=== PATIENT | female | born 1980 | race American Indian/Alaskan Native ===

== ENCOUNTER → 2025-02-09 | Outpatient (CLI) | payer OTHER, SELFPAY ==
--- NOTE | 2025-02-09 13:30 | XR_ITS ---
Examination: Breast ultrasound complete, bilateral Date and time of exam: February 09, 2025 1359 hours INDICATIONS: Mammogram July 15, 2024 focal asymmetry outer left breast, left breast sonogram July 15, 2024 3:00 nodule 15 x 10 mm, history left breast biopsy March 2024 Technique: Real-time grayscale ultrasonographic imaging bilateral breasts, including all 4 quadrants as well as nipple retroareolar and axillary regions. Findings: Sonographic images right breast Benign cyst No solid nodules Sonographic images left breast 1:00 oval circumscribed nodule 6 x 5 mm 4:00 cyst 3 x 3 mm 3:00 circumscribed nodule 5 x 4 mm IMPRESSION: BI-RADS Category 2: Benign findings
--- NOTE | 2025-02-09 14:30 | XR_ITS ---
Examination: Diagnostic digital mammography, bilateral Computer aided detection 3-D breast Tomosynthesis, bilateral Date and time of exam: February 09, 2025 1351 hours INDICATIONS: Mammogram December 09, 2023 architectural distortion 3:00 position left breast Technique: Nonmagnified MLO, CC views of the breasts to been obtained, reconstructed from 3-D Tomosynthesis images. R2 computer aided detection program utilized for evaluation of suspicious masses and/or abnormal calcifications. 3-D Tomosynthesis images obtained. Findings: The breasts are heterogeneously dense, which may obscure small masses Breast biopsy marker upper outer left breast No suspicious masses depicted Impression: BI-RADS Category 2: Benign findings Return to yearly follow-up mammography.
== END | disposition home or self-care (01) ==
PROVIDERS: PCP Surgery; Referring Provider Surgery; Visit Provider Surgery
DX: R92.323 Mammographic fibroglandular density, bilateral breasts (principal); N60.01 Solitary cyst of right breast; N60.02 Solitary cyst of left breast; N63.25 Unspecified lump in the left breast, overlapping quadrants; N63.21 Unspecified lump in the left breast, upper outer quadrant
CPT/HCPCS: 76641; 77062; 77066; G0279

== ENCOUNTER 2025-10-06 12:32 | Emergency (ER) | payer BC, SELFPAY ==
[2025-10-06 12:33] VITALS: BMI 34.0
[2025-10-06 13:08] VITALS: BP 123/80; PULSE 82; RESP 98; TEMP 36.9; O2SAT 100
--- NOTE | 2025-10-06 13:14 | XR_ITS ---
EXAMINATION: PA chest single view CAP TECHNIQUE: Upright PA chest single view Date and time: October 06, 2025, 1320 hours, comparison February 13, 2019 INDICATIONS: Fever diaphoresis night sweats shortness of breath 1 week. FINDINGS: Normal heart size Lungs are clear. Intact osseous structures IMPRESSION: No active disease
--- NOTE | 2025-10-06 13:14 | EKG_ITS ---
[facility] (Formerly [facility]) Test Date: 2025-10-06 Pat Name: CHRISTEN CHAMPION Department: Room: - Gender: Female Director Emergency Department: : 1980 Requested By: Vlad Campos Order Number: [id number] Reading MD: Vlad Campos Measurements Intervals [place] Rate: 72 P: 69 CO: 146 QRS: 46 QRSD: 108 T: 51 QT: 359 QTc: 394 Interpretive Statements SINUS RHYTHM LOW QRS VOLTAGE IN PRECORDIAL LEADS [QRS DEFLECTION < 1.0 mV IN CHEST LEADS] POSSIBLE RIGHT VENTRICULAR CONDUCTION DELAY [RSR (QR) IN V1/V2] No previous ECG available for comparison /store/S0/[id number].pdf
--- NOTE | 2025-10-06 13:15 | PD.EDRME ---
Rapid Medical Screening Exam E Arrival date/time: 10/06/25 12:32 45-year-old female with no known medical history presents to the emergency room with a chief complaint of shortness of breath, bilateral lower extremity swelling, chest pain, x 1 week. Patient states she is in the process of figuring out if she has valley fever I have greeted and performed a focused initial assessment of this patient. A comprehensive ED assessment and evaluation of the patient, analysis of all test results, and completion of the medical decision making process will be conducted by additional ED providers. Chief Complaint: General Adult/Misc Complain Time Seen by Provider: 10/06/25 12:40 Vital signs: Vital Signs Temperature 98.5 F 10/06/25 13:08 Pulse Rate 82 10/06/25 13:08 Respiratory Rate 98 H 10/06/25 13:08 Blood Pressure 123/80 10/06/25 13:08 Pulse Oximetry (%) 100 10/06/25 13:08 Oxygen Delivery Method Room Air 10/06/25 13:08 Vital signs reviewed by provider: Yes Exam: Clear bilateral lung sounds Strong and regular rhythm Clinical Impression: Valley fever/pneumonia
[2025-10-06 14:03] LABS: Basophils # (Auto) 0.1 Thou/mm3 (0.0-0.2); Basophils % (Auto) 1 % (0-2.5); Eosinophils # (Auto) 0.1 Thou/mm3 (0.0-0.5); Eosinophils % (Auto) 2 % (0-10); Hematocrit 36.3 % (36.0-46.0); Hemoglobin 12.1 g/dL (12.0-16.0); Immature Granulocytes Auto 0.02 Thou/mm3 (0.00-0.00); Lymphocytes # (Auto) 1.4 Thou/mm3 (1.0-4.8); Lymphocytes % (Auto) 18 % (10-50); Mean Corpuscular HGB Conc 33.3 g/dl (31.0-37.0); Mean Corpuscular Hemoglobin 28.1 pg (25.0-35.0); Mean Corpuscular Volume 84 fL (80-100); Monocytes # (Auto) 0.6 Thou/mm3 (0.0-0.8); Monocytes % (Auto) 8 % (0-12); Neutrophils # (Auto) 5.4 Thou/mm3 (1.8-7.7); Neutrophils % (Auto) 71 % (37-80); Nucleated Red Blood Cell # 0.00 Thou/mm3 (0.00-0.00); Nucleated Red Blood Cell % 0 /100 WBC (0); Platelet Count 439 Thou/mm3 (140-440); RDW Standard Deviation 41.1 fL (36.4-46.3); Red Blood Count 4.30 Miln/mm3 (4.00-5.20); White Blood Count 7.6 Thou/mm3 (3.6-11.0)
[2025-10-06 14:21] LABS: B-Type Natriuretic Peptide 80 pg/mL (0-100)
[2025-10-06 14:23] LABS: Alanine Aminotransferase 13 U/L (10-49); Albumin, Serum 4.5 gm/dL (3.5-5.0); Albumin/Globulin Ratio 1.2 (1.2-2.2); Alkaline Phosphatase 72 U/L (46-116); Anion Gap 11 (7-16); Aspartate Amino Transferase 16 U/L (0-34); BUN/Creatinine Ratio 9 Ratio (12-20); Bilirubin,Total 0.5 mg/dL (0.3-1.2); Blood Urea Nitrogen 7 mg/dL (9-23); Calcium 9.1 mg/dL (8.3-10.6); Calcium (Corrected) 9.1 mg/dL (8.5-10.1); Carbon Dioxide 24.0 mMol/L (20.0-31.0); Chloride 106 mMol/L (98-107); Creatinine (Component) 0.8 mg/dL (0.6-1.3); Estimated Creatinine Clearance 105.7 mL/min (>60); Globulin 3.8 gm/dL (2.3-3.5); Glucose 86 mg/dL (74-106); Magnesium 2.0 mg/dL (1.6-2.6); Osmolality,Calculated 278 (275-295); Potassium 3.8 mMol/L (3.4-5.1); Sodium 141 mMol/L (136-145); Total Protein 8.3 gm/dL (5.7-8.2); Troponin I < 0.002 ng/mL (0.0-0.045); eGFR > 60 See Note
[2025-10-06 14:23] LABS: Collection Type, Urine Clean Catch; WBC,Urine 0 /hpf (0-5)
[2025-10-06 14:27] LABS: Bilirubin,Urine Negative (Negative); Blood,Urine 2+ (Negative); Clarity,Urine Clear (Clear/Hazy); Color,Urine Colorless (Lt Yel-Yel); Culture Indicated,Urine Not Indicated; Glucose, Urine Negative (Negative); Ketones,Urine Negative (Negative); Leukocyte Esterase,Urine Negative (Negative); Nitrite,Urine Negative (Negative); PH,Urine 6.5 (5.0-7.0); Protein,Urine Negative (Neg - Trace); RBC,Urine 1 /hpf (0-3); Specific Gravity,Urine 1.003 (1.001-1.035); Squamous Epithelial Cell,Urine 1 /hpf (0-5); Urobilinogen,Urine Negative mg/dL (0.0-1.0)
--- NOTE | 2025-10-06 15:16 | PD.EDADULT ---
ED General RME/HPI General Chief complaint: General Adult/Misc Complain Stated complaint: LOOKING FOR RX FOR VALLEY FEVER; NIGHT SWEATS Time Seen by Provider: 10/06/25 12:40 Source: patient Arrival date/time: 10/06/25 12:32 Mode of arrival: ambulatory Limitations: no limitations RME / HPI RME / HPI narrative: 10/06/25 12:32 45-year-old female with no known medical history presents to the emergency room with a chief complaint of shortness of breath, bilateral lower extremity swelling, chest pain, x 1 week. Patient states she is in the process of figuring out if she has valley fever I have greeted and performed a focused initial assessment of this patient. A comprehensive ED assessment and evaluation of the patient, analysis of all test results, and completion of the medical decision making process will be conducted by additional ED providers. Patient states she has followed up with her primary care provider and specialist for numerous testing. Patient states she did do a cocci evaluation approximately 10 days ago that was nonconfirmatory. Patient states that they have ruled out psoriatic arthritis, RA and Lyme disease at this point. Exam: Clear bilateral lung sounds Strong and regular rhythm Impression: Valley fever/pneumonia Related Data Previous Rx's ?Medication ?Instructions ?Recorded dicyclomine 20 mg tablet 20 mg PO TID #30 tabs 02/18/19 hydrocodone 10 mg-acetaminophen 1 tab PO Q6H PRN pain #20 tabs 02/28/19 325 mg tablet (Melissa) Allergies Allergy/AdvReac Type Severity Reaction Status Date / Time No Known Allergies Allergy Verified 10/06/25 12:34 Review of Systems Review of Systems Systems Reviewed: All systems reviewed, normal except as documented Past Medical History Past Medical History NEUROLOGIC: Negative Neurological Disorders or Seizures CARDIAC: Negative Cardiac Disorders or Congestive Heart Failure RESPIRATORY: Negative Chronic Obstructive Pulmonary Disease (COPD) GASTROINTESTINAL: Positive Gastrointestinal Disorders, Gall Bladder Disease (For this procedure) and Obesity GENITOURINARY: Negative Genitourinary Disorders or Renal Disease REPRODUCTIVE: Positive Previous Pregnancies (); Negative Breast Cancer MUSCULOSKELETAL: Negative Musculoskeletal Disorders ENDOCRINE: Negative Endocrine Disorders, Diabetes Mellitus Type 1 or Diabetes Mellitus Type 2 HEMATOLOGIC: Negative Blood Disorders or Clotting Problems OTHER HISTORY: Positive Hospitalization (02/13-02/18/2019 GALLBLADDER [facility]) and Chicken Pox; Negative Autoimmune Disease, Shingles, Blood Transfusions, Anesthesia Reactions, MRSA or Breast Cancer Family History FAMILY HISTORY: Positive Family Cancer (SISTER (CERVICAL CANCER)) and Family Surgery (FATHER (BACK) SISTER(GALLBLADDER)); Negative Family Neurologic Problems, Family Respiratory Disorders or Family Anesthesia Reaction Surgical History SURGICAL: Negative Cardiac Surgery, Endocrine Surgery, Ear Surgery, Abdominal Surgery, Nephrectomy, Joint Replacement or Neurologic Surgery Social History SMOKING STATUS: Never smoker ED Exam Narrative Physical exam: Patient complains of global joint pain and musculoskeletal pain concerns as well as nonspecific chest pain and shortness of breath sensations. General Limitations: Present no limitations General appearance: Present alert and in distress (Patient is in mild to moderate distress due to anxiety related to her multitude of comorbidities.) Head Head exam: Present atraumatic Eye Eye exam: Present normal appearance, PERRL and EOMI ENT ENT exam: Present normal exam, normal oropharynx and mucous membranes moist Neck Neck exam: Present normal inspection, full ROM and trachea midline Chest Chest inspection: Present normal inspection and symmetric chest wall rise Respiratory Respiratory exam: Present normal lung sounds bilaterally Cardiovascular Cardiovascular exam: Present regular rate, normal rhythm and normal heart sounds Abdominal Exam Abdominal exam: Present soft and normal bowel sounds Extremities Exam Extremities exam: Present full ROM and other (Patient is placed 1+ bilateral pitting edema to lower extremities that was relatively unremarkable. This neurovascular intact. Pedal pulses are 5+5+ bilaterally.) Back Exam Back exam: Present normal inspection and full ROM Neurological Exam Neurological exam: Present alert, oriented X3 and CN II-XII intact Psychiatric Psychiatric exam: Present normal affect and normal mood Skin Skin exam: Present warm, dry, intact and normal color Course Quality Measures none Orders Category Date Time Status EKG (ED ONLY) *Do not use* NOW Care 10/06/25 13:14 Completed EKG (ED Only) Stat Exams 10/06/25 13:14 Draft XR chest 1V portable Stat Exams 10/06/25 13:14 Completed B-Type Natriuretic Peptide Stat Lab 10/06/25 13:44 Completed CBC Stat Lab 10/06/25 13:44 Completed Cocci Serology IgM with reflex to IgG [Cocci Serology, Lab 10/06/25 13:14 Received Unk History] Stat Comprehensive Metabolic Panel Stat Lab 10/06/25 13:44 Completed Magnesium Stat Lab 10/06/25 13:44 Completed Troponin I Stat Lab 10/06/25 13:44 Completed Urinalysis, C/S if Indicated Stat Lab 10/06/25 14:01 Received As noted above Vital Signs Vital signs: Vital Signs Temperature 98.5 F 10/06/25 13:08 Pulse Rate 82 10/06/25 13:08 Respiratory Rate 98 H 10/06/25 13:08 Blood Pressure 123/80 10/06/25 13:08 Pulse Oximetry (%) 100 10/06/25 13:08 Oxygen Delivery Method Room Air 10/06/25 13:08 As noted above Discharge Plan Plan Patient Disposition: HOME (Self Care) Prescriptions/Referrals Prescriptions/Med Rec: No Action dicyclomine 20 mg tablet 20 mg PO TID Qty: 30 0RF hydrocodone-acetaminophen [Melissa] 10-325 mg tablet 1 tab PO Q6H MDD 3 PRN (Reason: pain) Qty: 20 0RF Referrals: Jase Gracia PA-C [Primary Care Provider] - In 1 week Problem List Clinical Impression: Chronic pain Patient/Caregiver Discharge Instructions Education Materials: Chronic Pain Therapies Mind Body Additional Instructions: Advised patient continue follow-up with primary care provider and specialist for continued evaluation. Patient's cocci titer should return in the next few days. Print Language: Kosovan Stand Alone Forms: [facility] Patient Portal Info Letter MDM Narrative MDM hospital course (for use when minimal MDM required): All studies performed the ED were evaluated by me personally. Serum studies and urinalysis is unremarkable for any systemic concerns. Chest x-ray is unremarkable for any consolidation, signs of pulmonary infiltrate or cocci related speckling. Spent extensive time in conversation with the patient. Advised that the cocci titer will not return today and therefore, patient will be notified from this facility in the next few days or, patient can contact this facility to try to ascertain those results sooner. Advised patient she will need to continue follow-up with primary care provider and specialist for continued evaluation. Patient declined any additional pain medication today and states that she will just use Tylenol. Clinical Information Provided by: patient Medical Records reviewed None Meds/Rx considered, not ordered None Labs/Rad/Tests considered, not ordered None Labs Labs: interpreted by me Imaging Imaging interpretation: interpreted by me Medication Administration(s) none Diagnosis Differential Diagnosis ED Complaint MDM: Valley fever, pneumonia, viral upper respiratory illness, systemic illness,
[2025-10-07 14:51] LABS: Cocci Serology, IgM Negative (Negative)
[2025-10-09 14:24] LABS: Cocci Serology, IgG Negative (Negative)
== END 2025-10-06 16:53 | disposition home or self-care (01) ==
PROVIDERS: Emergency Provider Nurse Practitioner Family; PCP Physician Assistant
DX: G89.29 Other chronic pain (principal); R60.0 Localized edema; R06.02 Shortness of breath; R07.9 Chest pain, unspecified
CPT/HCPCS: 36415; 71045; 80053; 81001; 83735; 83880; 84484; 85025; 86331; 86635; 93005; 99283